=== PATIENT | female | born 1935 | race Caucasian/White ===

== ENCOUNTER 2018-03-02 11:05 | Day surgery (SDC) | payer MEDICARE ==
[2018-03-01 14:00] VITALS: BMI 27.4
[2018-03-02] MEDS ORDERED: Phenylephrine 2.5% Ophth Soln 5 ML BOT ONE (11:28)
== END 2018-03-02 12:52 | disposition home or self-care (01) ==
LOC: SDC 11:05
PROVIDERS: ATTEND Ophthalmology
PROC: 085K3ZZ Destruction of Left Lens, Percutaneous Approach (ICD-10-PCS; principal; 2018-03-02)
DX: H26.492 Other secondary cataract, left eye (principal); Z79.82 Long term (current) use of aspirin; Z79.899 Other long term (current) drug therapy

== ENCOUNTER 2022-01-24 15:57 | Inpatient (IN) | payer MEDICARE ==
[2022-01-24 16:37] LABS: #Eosinphils 0.1 thou/uL (0.0-0.7); #Lymphocytes 1.4 thou/uL (1.20-3.40); #Monocytes 0.6 thou/uL (0.11-0.59); #Neutrophils 4.8 thou/uL (1.40-6.50); %Basophils 0.2 % (0.0-1.0); %Eosinophils 1.2 % (0.0-10.0); %Lymphocytes 19.8 % (21.0-51.0); %Monocytes 8.8 % (0.0-10.0); %Neutrophils 70.1 % (42.0-75.0); Hemoglobin 11.6 g/dL (12.0-16.0); Mean Corpuscular HGB CONC 32.7 g/dL (32.0-36.0); Mean Corpuscular Hemoglobin 33.7 pg (27.0-31.0); Mean Platelet Volume 7.7 fL (7.4-10.4); Platelet Count 206 thou/uL (130-400); RBC Distribution Width 11.7 % (11.5-14.5); Red Blood Cell (RBC) Count 3.45 mill/uL (4.20-5.40); White Blood Cell (WBC) Count 6.9 thou/uL (4.8-10.8)
[2022-01-24 16:54] LABS: ALT (SGPT) 11 U/L (8-55); AST (SGOT) 13 U/L (5-34); Albumin 4.1 g/dL (3.4-4.8); Alkaline Phosphatase 73 U/L (40-110); Anion Gap 15 mmol/L (10-20); BUN (Urea Nitrogen) 31 mg/dL (9.8-20.1); Bilirubin, Total 0.9 mg/dL (0.2-1.2); Calc. Creatinine Clearance 0 mL/min (70-130); Calcium 9.5 mg/dL (7.8-10.44); Carbon Dioxide 24 mmol/L (23-31); Chloride 102 mmol/L (98-107); Globulin 2.6 g/dL (2.4-3.5); Glucose 110 mg/dL (83-110); Magnesium 1.8 mg/dL (1.6-2.6); Potassium 4.1 mmol/L (3.5-5.1); Protein, Total 6.7 g/dL (5.8-8.1); Sodium 137 mmol/L (136-145)
[2022-01-24] MEDS ORDERED: Dextrose 5% in Water 1,000 ML IV PRN (19:31)
[2022-01-24] MEDS ORDERED: Insulin Regular 300 UNITS/3 ML VIAL SC PRN ×2 (19:31)
[2022-01-24] MEDS ORDERED: Ondansetron ODT 4 MG TAB PO PRN (19:31)
[2022-01-24] MEDS ORDERED: Dextrose 50% Abboject 50 ML SYRINGE SLOW IVP PRN (19:31)
[2022-01-24] MEDS ORDERED: hydrALAZINE 20 MG/ML VIAL SLOW IVP PRN (19:31)
[2022-01-24] MEDS ORDERED: Ondansetron PF 4 MG/2 ML Vial IVP PRN (19:31)
[2022-01-24] MEDS ORDERED: Cyclobenzaprine 10 MG TAB PO PRN (19:36)
[2022-01-24] MEDS ORDERED: Famotidine 20 MG TAB PO SCH (21:00)
[2022-01-24] MEDS: Acetaminophen 500 MG TAB PO SCH (21:21)
[2022-01-24] MEDS: Senokot S 8.6-50 MG TAB PO SCH (21:23)
[2022-01-24] MEDS ORDERED: Sodium Chloride 0.9% 1,000 ML IV SCH (21:30)
[2022-01-25] MEDS: Acetaminophen 500 MG TAB PO SCH ×3 (02:53→13:58)
[2022-01-25 03:07] VITALS: BMI 30.4
[2022-01-25 03:17] VITALS: TEMP 97.9
[2022-01-25 03:51] LABS: #Lymphocytes 0.7 thou/uL (1.20-3.40); #Monocytes 0.3 thou/uL (0.11-0.59); #Neutrophils 7.6 thou/uL (1.40-6.50); %Basophils 0.1 % (0.0-1.0); %Eosinophils 0.3 % (0.0-10.0); %Lymphocytes 7.8 % (21.0-51.0); %Monocytes 3.2 % (0.0-10.0); %Neutrophils 88.6 % (42.0-75.0); Hemoglobin 12.1 g/dL (12.0-16.0); Mean Corpuscular HGB CONC 31.9 g/dL (32.0-36.0); Mean Corpuscular Hemoglobin 32.8 pg (27.0-31.0); Mean Platelet Volume 8.1 fL (7.4-10.4); Platelet Count 198 thou/uL (130-400); RBC Distribution Width 11.1 % (11.5-14.5); Red Blood Cell (RBC) Count 3.69 mill/uL (4.20-5.40); White Blood Cell (WBC) Count 8.6 thou/uL (4.8-10.8)
[2022-01-25 04:03] LABS: Anion Gap 15 mmol/L (10-20); BUN (Urea Nitrogen) 26 mg/dL (9.8-20.1); Calc. Creatinine Clearance 35 mL/min (70-130); Calcium 9.1 mg/dL (7.8-10.44); Carbon Dioxide 21 mmol/L (23-31); Chloride 104 mmol/L (98-107); Glucose 163 mg/dL (83-110); Magnesium 1.7 mg/dL (1.6-2.6); Phosphorus 3.2 mg/dL (2.3-4.7); Potassium 3.8 mmol/L (3.5-5.1); Sodium 136 mmol/L (136-145)
[2022-01-25] MEDS ORDERED: Magnesium 2 GM/50 ML(in water) 2 GM in Premix Bag 1 BAG IVPB SCH (08:00)
[2022-01-25] MEDS: Senokot S 8.6-50 MG TAB PO SCH (08:34)
[2022-01-25] MEDS ORDERED: Polyethylene Glycol 3350 17 GM Packet PO SCH (09:00)
[2022-01-25] MEDS ORDERED: Atorvastatin Calcium 10 MG TAB PO SCH (12:45)
[2022-01-25 16:22] VITALS: BP 141/73
[2022-01-25 16:48] LABS: SARS-CoV-2 PCR by NAA Not Detected (NotDetected)
[2022-01-26] MEDS ORDERED: Atorvastatin Calcium 10 MG TAB PO SCH (09:00)
[2022-01-26] MEDS ORDERED: Losartan 25 MG TAB PO SCH (09:00)
== END 2022-01-25 17:52 | disposition home or self-care (01) | DRG 86 ==
LOC: ERS 15:57 → IMCU/EMU 19:31
PROVIDERS: ADMIT Nurse Practitioner Acute Care; ATTEND Surgery
DX: S06.6X1A Traumatic subarachnoid hemorrhage with loss of consciousness of 30 minutes or less, initial encounter (principal); N17.9 Acute kidney failure, unspecified; Z20.822 Contact with and (suspected) exposure to COVID-19; S06.5X1A Traumatic subdural hemorrhage with loss of consciousness of 30 minutes or less, initial encounter; S02.119A Unspecified fracture of occiput, initial encounter for closed fracture; E11.9 Type 2 diabetes mellitus without complications; I10 Essential (primary) hypertension; F41.9 Anxiety disorder, unspecified; F32.A Depression, unspecified; F03.90 Unspecified dementia, unspecified severity, without behavioral disturbance, psychotic disturbance, mood disturbance, and anxiety; W18.30XA Fall on same level, unspecified, initial encounter; Z90.49 Acquired absence of other specified parts of digestive tract; Z87.891 Personal history of nicotine dependence; Z79.899 Other long term (current) drug therapy
CPT/HCPCS: 36415; 36416; 70450; 72125; 80048; 80053; 83735; 84100; 84484; 85025; 93005; G0390; J3475; J7050; U0003; U0005

== ENCOUNTER 2022-03-28 11:35 | Outpatient (CLI) | payer OTHER | END 2022-03-28 11:36 | disposition home or self-care (01) | LOC: SCSCT 11:35 | PROVIDERS: ATTEND Neurological Surgery | DX: I60.9 Nontraumatic subarachnoid hemorrhage, unspecified (principal); I62.00 Nontraumatic subdural hemorrhage, unspecified; I67.82 Cerebral ischemia | CPT/HCPCS: 70450 ==

== ENCOUNTER 2022-04-09 10:29 | Inpatient (IN) | payer OTHER ==
[2022-04-09 12:41] LABS: #Lymphocytes 0.9 thou/uL (1.20-3.40); #Monocytes 0.4 thou/uL (0.11-0.59); #Neutrophils 2.2 thou/uL (1.40-6.50); %Basophils 0.6 % (0.0-1.0); %Eosinophils 0.6 % (0.0-10.0); %Lymphocytes 25.4 % (21.0-51.0); %Monocytes 11.8 % (0.0-10.0); %Neutrophils 61.6 % (42.0-75.0); Hemoglobin 11.7 g/dL (12.0-16.0); Mean Corpuscular HGB CONC 32.9 g/dL (32.0-36.0); Mean Corpuscular Hemoglobin 32.7 pg (27.0-31.0); Mean Corpuscular Volume 99.4 fL (78.0-98.0); Mean Platelet Volume 7.1 fL (7.4-10.4); Platelet Count 278 thou/uL (130-400); RBC Distribution Width 11.7 % (11.5-14.5); Red Blood Cell (RBC) Count 3.56 mill/uL (4.20-5.40); White Blood Cell (WBC) Count 3.5 thou/uL (4.8-10.8)
[2022-04-09 13:07] LABS: ALT (SGPT) 25 U/L (8-55); AST (SGOT) 26 U/L (5-34); Albumin 3.9 g/dL (3.4-4.8); Alkaline Phosphatase 57 U/L (40-110); Anion Gap 13 mmol/L (10-20); BUN (Urea Nitrogen) 39 mg/dL (9.8-20.1); Bilirubin, Total 0.5 mg/dL (0.2-1.2); CK (CPK) 109 U/L (29-168); Calc. Creatinine Clearance 0 mL/min (70-130); Calcium 9.4 mg/dL (7.8-10.44); Carbon Dioxide 26 mmol/L (23-31); Chloride 100 mmol/L (98-107); Estimated GFR 28; Globulin 3.1 g/dL (2.4-3.5); Glucose 121 mg/dL (83-110); Lipase 27 U/L (8-78); Magnesium 1.9 mg/dL (1.6-2.6); Potassium 3.9 mmol/L (3.5-5.1); Sodium 135 mmol/L (136-145)
[2022-04-09 14:44] LABS: Bacteria/HPF 4+ HPF (None Seen); Bilirubin Negative (Negative); Blood, Urine Negative (Negative); Clarity Cloudy (Clear); Glucose, Urine (Dipstick) Normal (Negative); Ketone, Urine Trace mg/dL (Negative); Leukocyte 500 Leu/uL (Negative); Nitrite Negative (Negative); Protein, Urine (Dipstick) Negative (Neg-Trace); RBC/HPF None Seen HPF (0-3); Specific Gravity, Urine 1.015 (1.002-1.036); Squamous Epithelial 0-3 HPF (0-3); Urobilinogen Normal mg/dL (Less than 2)
[2022-04-09 15:18] LABS: SARS-CoV-2 NAA Rapid Test Not Detected (NotDetected)
[2022-04-09 16:17] VITALS: BMI 25.2
[2022-04-09] MEDS: cefTRIAXone\\ROCEPHIN 1 GM in Sodium Chloride 0.9% 100 ML IVPB SCH (17:39)
[2022-04-09] MEDS: Lactated Ringer's 1,000 ML IV SCH (17:39)
[2022-04-09 19:01] LABS: Creatinine, Urine 114.35 mg/dL (47-110)
[2022-04-09] MEDS: Atorvastatin Calcium 10 MG TAB PO SCH (20:23)
[2022-04-09] MEDS: Acetaminophen 500 MG TAB PO PRN (20:23)
[2022-04-10] MEDS: Lactated Ringer's 1,000 ML IV SCH ×3 (02:45→15:43)
[2022-04-10 06:12] LABS: #Eosinphils 0.1 thou/uL (0.0-0.7); #Lymphocytes 1.1 thou/uL (1.20-3.40); #Monocytes 0.4 thou/uL (0.11-0.59); #Neutrophils 3.1 thou/uL (1.40-6.50); %Basophils 0.3 % (0.0-1.0); %Eosinophils 1.1 % (0.0-10.0); %Lymphocytes 23.4 % (21.0-51.0); %Monocytes 9.1 % (0.0-10.0); %Neutrophils 66.1 % (42.0-75.0); Hemoglobin 10.8 g/dL (12.0-16.0); Mean Corpuscular HGB CONC 32.4 g/dL (32.0-36.0); Mean Corpuscular Hemoglobin 32.4 pg (27.0-31.0); Mean Platelet Volume 6.8 fL (7.4-10.4); Platelet Count 276 thou/uL (130-400); RBC Distribution Width 11.4 % (11.5-14.5); Red Blood Cell (RBC) Count 3.32 mill/uL (4.20-5.40); White Blood Cell (WBC) Count 4.6 thou/uL (4.8-10.8)
[2022-04-10 06:26] LABS: Anion Gap 14 mmol/L (10-20); BUN (Urea Nitrogen) 26 mg/dL (9.8-20.1); Calc. Creatinine Clearance 40 mL/min (70-130); Carbon Dioxide 25 mmol/L (23-31); Chloride 103 mmol/L (98-107); Estimated GFR 47; Glucose 103 mg/dL (83-110); Potassium 3.6 mmol/L (3.5-5.1); Sodium 138 mmol/L (136-145)
[2022-04-10] MEDS: Aspirin Chewable 81 MG TAB PO SCH (08:01)
[2022-04-10] MEDS: Amlodipine 5 MG TAB PO SCH (08:01)
[2022-04-10] MEDS: Enoxaparin Sodium 30 MG/0.3 ML SYRINGE SC SCH (08:04)
[2022-04-10] MEDS ORDERED: cefTRIAXone\\ROCEPHIN 1 GM VIAL ONE (15:41)
[2022-04-10] MEDS: cefTRIAXone\\ROCEPHIN 1 GM in Sodium Chloride 0.9% 100 ML IVPB SCH (15:43)
[2022-04-10] MEDS: Acetaminophen 500 MG TAB PO PRN (19:56)
[2022-04-10] MEDS: Atorvastatin Calcium 10 MG TAB PO SCH (20:02)
[2022-04-11] MEDS: Lactated Ringer's 1,000 ML IV SCH ×4 (03:00→22:53)
[2022-04-11 06:46] LABS: #Eosinphils 0.1 thou/uL (0.0-0.7); #Lymphocytes 1.1 thou/uL (1.20-3.40); #Monocytes 0.5 thou/uL (0.11-0.59); %Basophils 0.3 % (0.0-1.0); %Eosinophils 1.5 % (0.0-10.0); %Lymphocytes 23.6 % (21.0-51.0); %Monocytes 11.4 % (0.0-10.0); %Neutrophils 63.2 % (42.0-75.0); Hemoglobin 10.4 g/dL (12.0-16.0); Mean Corpuscular HGB CONC 32.9 g/dL (32.0-36.0); Mean Corpuscular Hemoglobin 33.2 pg (27.0-31.0); Mean Platelet Volume 6.8 fL (7.4-10.4); Platelet Count 258 thou/uL (130-400); RBC Distribution Width 11.6 % (11.5-14.5); Red Blood Cell (RBC) Count 3.12 mill/uL (4.20-5.40); White Blood Cell (WBC) Count 4.7 thou/uL (4.8-10.8)
[2022-04-11 07:05] LABS: Anion Gap 10 mmol/L (10-20); BUN (Urea Nitrogen) 16 mg/dL (9.8-20.1); Calc. Creatinine Clearance 48 mL/min (70-130); Calcium 8.6 mg/dL (7.8-10.44); Carbon Dioxide 28 mmol/L (23-31); Chloride 103 mmol/L (98-107); Estimated GFR 59; Glucose 95 mg/dL (83-110); Potassium 3.4 mmol/L (3.5-5.1); Sodium 138 mmol/L (136-145)
[2022-04-11] MEDS ORDERED: Potassium Chloride 20 MEQ TAB PO SCH (07:15)
[2022-04-11] MEDS: Amlodipine 5 MG TAB PO SCH (08:04)
[2022-04-11] MEDS: Aspirin Chewable 81 MG TAB PO SCH (08:04)
[2022-04-11] MEDS: Enoxaparin Sodium 30 MG/0.3 ML SYRINGE SC SCH (08:04)
[2022-04-11] MEDS ORDERED: Thiamine 100 MG TAB PO SCH (11:30)
[2022-04-11] MEDS ORDERED: Gentamicin 80 MG/2 ML VIAL IVPB SCH (16:00)
[2022-04-11] MEDS ORDERED: Gentamicin 110 MG in Sodium Chloride 0.9% 100 ML IVPB SCH (16:15)
[2022-04-11] MEDS: cefTRIAXone\\ROCEPHIN 1 GM in Sodium Chloride 0.9% 100 ML IVPB SCH (16:47)
[2022-04-11] MEDS: Atorvastatin Calcium 10 MG TAB PO SCH (20:38)
[2022-04-11] MEDS: Acetaminophen 325 MG TAB PO PRN (20:38)
[2022-04-11] MEDS ORDERED: Melatonin 3 MG TAB PO SCH (23:59)
[2022-04-12 05:52] LABS: #Eosinphils 0.1 thou/uL (0.0-0.7); #Lymphocytes 1.1 thou/uL (1.20-3.40); #Monocytes 0.6 thou/uL (0.11-0.59); %Lymphocytes 22.7 % (21.0-51.0); %Monocytes 12.6 % (0.0-10.0); %Neutrophils 62.7 % (42.0-75.0); Hemoglobin 10.4 g/dL (12.0-16.0); Mean Corpuscular HGB CONC 32.8 g/dL (32.0-36.0); Mean Corpuscular Hemoglobin 33.1 pg (27.0-31.0); Mean Platelet Volume 6.6 fL (7.4-10.4); Platelet Count 246 thou/uL (130-400); RBC Distribution Width 11.6 % (11.5-14.5); Red Blood Cell (RBC) Count 3.13 mill/uL (4.20-5.40); White Blood Cell (WBC) Count 4.8 thou/uL (4.8-10.8)
[2022-04-12 06:11] LABS: Anion Gap 11 mmol/L (10-20); BUN (Urea Nitrogen) 13 mg/dL (9.8-20.1); Calc. Creatinine Clearance 49 mL/min (70-130); Calcium 8.6 mg/dL (7.8-10.44); Carbon Dioxide 27 mmol/L (23-31); Chloride 105 mmol/L (98-107); Estimated GFR 61; Glucose 101 mg/dL (83-110); Potassium 3.7 mmol/L (3.5-5.1); Sodium 139 mmol/L (136-145)
[2022-04-12] MEDS: Amlodipine 5 MG TAB PO SCH (09:30)
[2022-04-12] MEDS: Thiamine 100 MG TAB PO SCH (09:30)
[2022-04-12] MEDS: Aspirin Chewable 81 MG TAB PO SCH (09:30)
[2022-04-12] MEDS: Enoxaparin Sodium 30 MG/0.3 ML SYRINGE SC SCH (09:30)
[2022-04-12] MEDS: Acetaminophen 325 MG TAB PO PRN (15:21)
[2022-04-12] MEDS: Lactated Ringer's 1,000 ML IV SCH (17:40)
[2022-04-12] MEDS: Atorvastatin Calcium 10 MG TAB PO SCH (20:23)
[2022-04-13] MEDS: Lactated Ringer's 1,000 ML IV SCH ×3 (02:35→20:57)
[2022-04-13] MEDS ORDERED: Melatonin 3 MG TAB PO SCH (04:00)
[2022-04-13 06:32] LABS: #Eosinphils 0.1 thou/uL (0.0-0.7); #Monocytes 0.6 thou/uL (0.11-0.59); #Neutrophils 2.7 thou/uL (1.40-6.50); %Basophils 0.2 % (0.0-1.0); %Eosinophils 1.9 % (0.0-10.0); %Lymphocytes 22.9 % (21.0-51.0); %Monocytes 13.3 % (0.0-10.0); %Neutrophils 61.7 % (42.0-75.0); Hemoglobin 10.7 g/dL (12.0-16.0); Mean Corpuscular HGB CONC 33.6 g/dL (32.0-36.0); Mean Corpuscular Hemoglobin 33.8 pg (27.0-31.0); Mean Platelet Volume 6.7 fL (7.4-10.4); Platelet Count 239 thou/uL (130-400); RBC Distribution Width 11.5 % (11.5-14.5); Red Blood Cell (RBC) Count 3.18 mill/uL (4.20-5.40); White Blood Cell (WBC) Count 4.4 thou/uL (4.8-10.8)
[2022-04-13 06:53] LABS: Anion Gap 12 mmol/L (10-20); BUN (Urea Nitrogen) 10 mg/dL (9.8-20.1); Calc. Creatinine Clearance 55 mL/min (70-130); Calcium 8.9 mg/dL (7.8-10.44); Carbon Dioxide 27 mmol/L (23-31); Chloride 104 mmol/L (98-107); Estimated GFR 69; Glucose 102 mg/dL (83-110); Potassium 3.8 mmol/L (3.5-5.1); Sodium 139 mmol/L (136-145)
[2022-04-13] MEDS: Aspirin Chewable 81 MG TAB PO SCH (08:57)
[2022-04-13] MEDS: Amlodipine 5 MG TAB PO SCH (08:57)
[2022-04-13] MEDS: Thiamine 100 MG TAB PO SCH (08:57)
[2022-04-13] MEDS: Enoxaparin Sodium 30 MG/0.3 ML SYRINGE SC SCH (08:58)
[2022-04-13] MEDS: Acetaminophen 325 MG TAB PO PRN ×2 (16:32→22:28)
[2022-04-13] MEDS: Atorvastatin Calcium 10 MG TAB PO SCH (20:56)
[2022-04-13] MEDS: Melatonin 3 MG TAB PO PRN (22:28)
[2022-04-14] MEDS: Acetaminophen 325 MG TAB PO PRN ×2 (04:57→21:09)
[2022-04-14 06:47] LABS: Anion Gap 11 mmol/L (10-20); BUN (Urea Nitrogen) 10 mg/dL (9.8-20.1); Calc. Creatinine Clearance 49 mL/min (70-130); Calcium 8.8 mg/dL (7.8-10.44); Carbon Dioxide 29 mmol/L (23-31); Chloride 104 mmol/L (98-107); Estimated GFR 61; Glucose 97 mg/dL (83-110); Potassium 3.7 mmol/L (3.5-5.1); Sodium 140 mmol/L (136-145)
[2022-04-14 06:56] LABS: Band 6 % (5-11); Hemoglobin 10.7 g/dL (12.0-16.0); Hypochromia SLIGHT = 6-15 cells (100X) (0-5/hpf); Lymphocytes 14 % (21-51); MDiff Complete? YES; Macrocytosis SLIGHT = 6-15 cells (100X) (0-5/hpf); Mean Corpuscular HGB CONC 32.7 g/dL (32.0-36.0); Mean Corpuscular Hemoglobin 33.4 pg (27.0-31.0); Mean Platelet Volume 6.9 fL (7.4-10.4); Monocytes 8 % (0-10); Neutrophil 72 % (42-75); Platelet Count 225 thou/uL (130-400); Platelet Morphology Comment Appears Adequate; RBC Distribution Width 11.7 % (11.5-14.5); White Blood Cell (WBC) Count 3.6 thou/uL (4.8-10.8)
[2022-04-14] MEDS: Enoxaparin Sodium 30 MG/0.3 ML SYRINGE SC SCH (08:52)
[2022-04-14] MEDS: Amlodipine 5 MG TAB PO SCH (09:14)
[2022-04-14] MEDS: Aspirin Chewable 81 MG TAB PO SCH (09:15)
[2022-04-14] MEDS: Thiamine 100 MG TAB PO SCH (09:17)
[2022-04-14] MEDS: Lactated Ringer's 1,000 ML IV SCH (18:27)
[2022-04-14] MEDS: Atorvastatin Calcium 10 MG TAB PO SCH (21:08)
[2022-04-14] MEDS: Melatonin 3 MG TAB PO PRN (21:09)
[2022-04-15 06:43] LABS: Anion Gap 13 mmol/L (10-20); BUN (Urea Nitrogen) 9 mg/dL (9.8-20.1); Calc. Creatinine Clearance 48 mL/min (70-130); Calcium 8.7 mg/dL (7.8-10.44); Carbon Dioxide 26 mmol/L (23-31); Chloride 105 mmol/L (98-107); Estimated GFR 59; Glucose 92 mg/dL (83-110); Potassium 3.7 mmol/L (3.5-5.1); Sodium 140 mmol/L (136-145)
[2022-04-15] MEDS: Enoxaparin Sodium 40 MG/0.4 ML SYRINGE SC SCH (08:06)
[2022-04-15] MEDS: Aspirin Chewable 81 MG TAB PO SCH (08:06)
[2022-04-15] MEDS: Thiamine 100 MG TAB PO SCH (08:07)
[2022-04-15] MEDS: Amlodipine 5 MG TAB PO SCH (08:07)
[2022-04-15 08:09] LABS: #Eosinphils 0.1 thou/uL (0.0-0.7); #Monocytes 0.6 thou/uL (0.11-0.59); #Neutrophils 2.7 thou/uL (1.40-6.50); %Basophils 0.6 % (0.0-1.0); %Eosinophils 2.5 % (0.0-10.0); %Lymphocytes 23.3 % (21.0-51.0); %Monocytes 13.1 % (0.0-10.0); %Neutrophils 60.7 % (42.0-75.0); Hemoglobin 10.6 g/dL (12.0-16.0); Mean Corpuscular HGB CONC 32.8 g/dL (32.0-36.0); Mean Corpuscular Hemoglobin 33.4 pg (27.0-31.0); Mean Platelet Volume 7.1 fL (7.4-10.4); Platelet Count 215 thou/uL (130-400); RBC Distribution Width 11.9 % (11.5-14.5); Red Blood Cell (RBC) Count 3.17 mill/uL (4.20-5.40); White Blood Cell (WBC) Count 4.4 thou/uL (4.8-10.8)
[2022-04-15] MEDS: Atorvastatin Calcium 10 MG TAB PO SCH (20:06)
[2022-04-15] MEDS: Melatonin 3 MG TAB PO PRN (20:26)
[2022-04-15] MEDS: Acetaminophen 325 MG TAB PO PRN (20:27)
[2022-04-16] MEDS: Acetaminophen 325 MG TAB PO PRN ×2 (02:41→16:38)
[2022-04-16 06:44] LABS: #Eosinphils 0.1 thou/uL (0.0-0.7); #Monocytes 0.5 thou/uL (0.11-0.59); #Neutrophils 2.3 thou/uL (1.40-6.50); %Basophils 1.1 % (0.0-1.0); %Eosinophils 3.2 % (0.0-10.0); %Lymphocytes 24.6 % (21.0-51.0); %Monocytes 11.9 % (0.0-10.0); %Neutrophils 59.3 % (42.0-75.0); Hemoglobin 10.4 g/dL (12.0-16.0); Mean Corpuscular HGB CONC 32.2 g/dL (32.0-36.0); Mean Corpuscular Hemoglobin 32.8 pg (27.0-31.0); Mean Platelet Volume 7.2 fL (7.4-10.4); Platelet Count 227 thou/uL (130-400); RBC Distribution Width 11.7 % (11.5-14.5); Red Blood Cell (RBC) Count 3.17 mill/uL (4.20-5.40); White Blood Cell (WBC) Count 3.9 thou/uL (4.8-10.8)
[2022-04-16] MEDS: Aspirin Chewable 81 MG TAB PO SCH (08:43)
[2022-04-16] MEDS: Amlodipine 5 MG TAB PO SCH (08:43)
[2022-04-16] MEDS: Thiamine 100 MG TAB PO SCH (08:44)
[2022-04-16] MEDS: Enoxaparin Sodium 40 MG/0.4 ML SYRINGE SC SCH (08:44)
[2022-04-16 09:12] LABS: Chloride 106 mmol/L (98-107); Potassium 3.5 mmol/L (3.5-5.1); Sodium 141 mmol/L (136-145)
[2022-04-16 09:13] LABS: Calcium 8.8 mg/dL (7.8-10.44); Glucose 94 mg/dL (83-110)
[2022-04-16 09:15] LABS: Carbon Dioxide 25 mmol/L (23-31)
[2022-04-16 09:16] LABS: Calc. Creatinine Clearance 44 mL/min (70-130); Estimated GFR 54
[2022-04-16 09:17] LABS: BUN (Urea Nitrogen) 10 mg/dL (9.8-20.1)
[2022-04-16 14:51] LABS: Anion Gap 14 mmol/L (10-20)
[2022-04-16] MEDS: Atorvastatin Calcium 10 MG TAB PO SCH (20:42)
[2022-04-16] MEDS: Melatonin 3 MG TAB PO PRN (20:42)
[2022-04-17] MEDS: Aspirin Chewable 81 MG TAB PO SCH (08:35)
[2022-04-17] MEDS: Amlodipine 5 MG TAB PO SCH (08:35)
[2022-04-17] MEDS: Enoxaparin Sodium 40 MG/0.4 ML SYRINGE SC SCH (08:35)
[2022-04-17] MEDS: Thiamine 100 MG TAB PO SCH (08:35)
[2022-04-17] MEDS: Atorvastatin Calcium 10 MG TAB PO SCH (22:03)
[2022-04-18] MEDS: Amlodipine 5 MG TAB PO SCH (09:29)
[2022-04-18] MEDS: Enoxaparin Sodium 40 MG/0.4 ML SYRINGE SC SCH (09:29)
[2022-04-18] MEDS: Aspirin Chewable 81 MG TAB PO SCH (09:30)
[2022-04-18] MEDS: Thiamine 100 MG TAB PO SCH (09:30)
[2022-04-18] MEDS: Acetaminophen 325 MG TAB PO PRN (10:08)
[2022-04-18] MEDS: Atorvastatin Calcium 10 MG TAB PO SCH (21:44)
[2022-04-18] MEDS: Melatonin 3 MG TAB PO PRN (21:44)
[2022-04-19] MEDS: Amlodipine 5 MG TAB PO SCH (09:01)
[2022-04-19] MEDS: Aspirin Chewable 81 MG TAB PO SCH (09:01)
[2022-04-19] MEDS: Enoxaparin Sodium 40 MG/0.4 ML SYRINGE SC SCH (09:02)
[2022-04-19] MEDS: Thiamine 100 MG TAB PO SCH (09:02)
[2022-04-19] MEDS: Atorvastatin Calcium 10 MG TAB PO SCH (22:08)
[2022-04-19] MEDS: Acetaminophen 325 MG TAB PO PRN (22:08)
[2022-04-20 09:18] LABS: #Basophils 0.1 thou/uL (0.0-0.2); #Eosinphils 0.1 thou/uL (0.0-0.7); #Lymphocytes 1.6 thou/uL (1.20-3.40); #Monocytes 0.7 thou/uL (0.11-0.59); #Neutrophils 2.5 thou/uL (1.40-6.50); %Basophils 1.3 % (0.0-1.0); %Eosinophils 2.5 % (0.0-10.0); %Lymphocytes 32.2 % (21.0-51.0); %Monocytes 14.5 % (0.0-10.0); %Neutrophils 49.6 % (42.0-75.0); Hemoglobin 11.2 g/dL (12.0-16.0); Mean Corpuscular HGB CONC 31.9 g/dL (32.0-36.0); Platelet Count 193 thou/uL (130-400); RBC Distribution Width 12.4 % (11.5-14.5); Red Blood Cell (RBC) Count 3.38 mill/uL (4.20-5.40); White Blood Cell (WBC) Count 5.1 thou/uL (4.8-10.8)
[2022-04-20] MEDS: Enoxaparin Sodium 40 MG/0.4 ML SYRINGE SC SCH (09:36)
[2022-04-20] MEDS: Amlodipine 5 MG TAB PO SCH (09:37)
[2022-04-20] MEDS: Aspirin Chewable 81 MG TAB PO SCH (09:38)
[2022-04-20] MEDS: Thiamine 100 MG TAB PO SCH (09:38)
[2022-04-20 09:39] LABS: Anion Gap 12 mmol/L (10-20); BUN (Urea Nitrogen) 16 mg/dL (9.8-20.1); Calc. Creatinine Clearance 45 mL/min (70-130); Calcium 8.6 mg/dL (7.8-10.44); Carbon Dioxide 24 mmol/L (23-31); Chloride 107 mmol/L (98-107); Estimated GFR 55; Glucose 84 mg/dL (83-110); Potassium 3.8 mmol/L (3.5-5.1); Sodium 139 mmol/L (136-145)
[2022-04-20] MEDS: Melatonin 3 MG TAB PO PRN (21:10)
[2022-04-20] MEDS: Atorvastatin Calcium 10 MG TAB PO SCH (21:10)
[2022-04-21] MEDS: Thiamine 100 MG TAB PO SCH (08:14)
[2022-04-21] MEDS: Enoxaparin Sodium 40 MG/0.4 ML SYRINGE SC SCH (08:14)
[2022-04-21] MEDS: Aspirin Chewable 81 MG TAB PO SCH (08:14)
[2022-04-21] MEDS: Amlodipine 5 MG TAB PO SCH (08:14)
[2022-04-21] MEDS: Atorvastatin Calcium 10 MG TAB PO SCH (21:49)
[2022-04-21] MEDS: Melatonin 3 MG TAB PO PRN (21:49)
[2022-04-22] MEDS ORDERED: Melatonin 3 MG TAB PO SCH (04:30)
[2022-04-22] MEDS: Amlodipine 5 MG TAB PO SCH (08:36)
[2022-04-22] MEDS: Aspirin Chewable 81 MG TAB PO SCH (08:36)
[2022-04-22] MEDS: Thiamine 100 MG TAB PO SCH (08:37)
[2022-04-22] MEDS: Enoxaparin Sodium 40 MG/0.4 ML SYRINGE SC SCH (08:37)
[2022-04-22] MEDS: Atorvastatin Calcium 10 MG TAB PO SCH (21:30)
[2022-04-22] MEDS: Melatonin 3 MG TAB PO PRN (21:30)
[2022-04-23 09:04] VITALS: BP 119/73; TEMP 98.1
[2022-04-23] MEDS: Amlodipine 5 MG TAB PO SCH (09:14)
[2022-04-23] MEDS: Aspirin Chewable 81 MG TAB PO SCH (09:15)
[2022-04-23] MEDS: Enoxaparin Sodium 40 MG/0.4 ML SYRINGE SC SCH (09:15)
[2022-04-23] MEDS: Thiamine 100 MG TAB PO SCH (09:16)
[2022-04-23 17:37] LABS: QuantiFERON-TB Gold Plus POSITIVE (Negative)
== END 2022-04-23 09:57 | DRG 683 ==
LOC: ERS 10:29 → OBSVTOIN 13:55 → T4-B 13:55
PROVIDERS: ADMIT Student in an Organized Health Care Education/Training Program; ATTEND Student in an Organized Health Care Education/Training Program
DX: N17.9 Acute kidney failure, unspecified (principal); G93.49 Other encephalopathy; N39.0 Urinary tract infection, site not specified; Z20.822 Contact with and (suspected) exposure to COVID-19; Z66 Do not resuscitate; Z51.5 Encounter for palliative care; F03.90 Unspecified dementia, unspecified severity, without behavioral disturbance, psychotic disturbance, mood disturbance, and anxiety; K21.9 Gastro-esophageal reflux disease without esophagitis; I10 Essential (primary) hypertension; E78.5 Hyperlipidemia, unspecified; K59.00 Constipation, unspecified; E86.0 Dehydration; Z86.16 Personal history of COVID-19; Z79.899 Other long term (current) drug therapy
CPT/HCPCS: 36415; 51701; 70450; 71045; 80048; 80053; 81003; 81015; 82550; 82570; 83690; 83735; 84145; 84300; 84443; 84484; 85025; 86480; 87077; 87086; 87186; 93005; J0696; J1580; J1650; J3490; J7120; U0002; U0003; U0005

== ENCOUNTER 2022-07-10 12:15 | Emergency (ER) | payer MEDICARE, OTHER ==
[2022-07-10 13:31] LABS: #Eosinphils 0.1 thou/uL (0.0-0.7); #Lymphocytes 1.6 thou/uL (1.20-3.40); #Monocytes 0.6 thou/uL (0.11-0.59); #Neutrophils 4.6 thou/uL (1.40-6.50); %Basophils 0.2 % (0.0-1.0); %Eosinophils 1.5 % (0.0-10.0); %Lymphocytes 22.7 % (21.0-51.0); %Monocytes 8.4 % (0.0-10.0); %Neutrophils 67.2 % (42.0-75.0); Hemoglobin 11.3 g/dL (12.0-16.0); Mean Corpuscular HGB CONC 32.2 g/dL (32.0-36.0); Mean Corpuscular Volume 99.4 fl (78.0-98.0); Mean Platelet Volume 8.1 fL (7.4-10.4); Platelet Count 189 thou/uL (130-400); RBC Distribution Width 11.8 % (11.5-14.5); Red Blood Cell (RBC) Count 3.54 mill/uL (4.20-5.40); White Blood Cell (WBC) Count 6.9 thou/uL (4.8-10.8)
[2022-07-10 13:49] LABS: Bacteria/HPF 2+ HPF (None Seen); Bilirubin Negative (Negative); Blood, Urine Negative (Negative); Clarity Clear (Clear); Glucose, Urine (Dipstick) Normal (Negative); Ketone, Urine Negative (Negative); Leukocyte 500 Leu/uL (Negative); Nitrite 1+ (Negative); Protein, Urine (Dipstick) Negative (Neg-Trace); RBC/HPF 0-3 HPF (0-3); Specific Gravity, Urine 1.005 (1.002-1.036); Squamous Epithelial 0-3 HPF (0-3); Urobilinogen Normal mg/dL (Less than 2); WBC/HPF Greater than 50 HPF (0-3)
[2022-07-10 13:56] LABS: ALT (SGPT) 7 U/L (8-55); AST (SGOT) 10 U/L (5-34); Albumin 3.7 g/dL (3.4-4.8); Alkaline Phosphatase 90 U/L (40-110); Anion Gap 10 mmol/L (10-20); BUN (Urea Nitrogen) 19 mg/dL (9.8-20.1); Bilirubin, Total 0.8 mg/dL (0.2-1.2); Calc. Creatinine Clearance 0 mL/min (70-130); Calcium 9.4 mg/dL (7.8-10.44); Carbon Dioxide 28 mmol/L (23-31); Chloride 105 mmol/L (98-107); Estimated GFR 41; Globulin 2.7 g/dL (2.4-3.5); Glucose 101 mg/dL (83-110); Potassium 3.7 mmol/L (3.5-5.1); Protein, Total 6.4 g/dL (5.8-8.1); Sodium 139 mmol/L (136-145)
[2022-07-10] MEDS ORDERED: Fosfomycin 3 GM/Packet PO SCH (16:15)
== END 2022-07-10 16:28 ==
LOC: ERS 12:15
DX: N39.0 Urinary tract infection, site not specified (principal); F03.90 Unspecified dementia, unspecified severity, without behavioral disturbance, psychotic disturbance, mood disturbance, and anxiety; E11.9 Type 2 diabetes mellitus without complications; I10 Essential (primary) hypertension; Z87.891 Personal history of nicotine dependence
CPT/HCPCS: 36415; 70450; 71045; 80053; 81003; 81015; 83605; 84484; 85025; 87040; 87077; 87086; 87186; 93005